=== PATIENT | female | born 1990 | race Caucasian/White ===

== ENCOUNTER 2018-02-12 07:53 | Outpatient (CLI) | payer OTHER ==
--- NOTE | 2018-02-12 08:35 | ULT ---
RIGHT BREAST ULTRASOUND: Indication: Ultrasound performed to evaluate a painful palpable lump 7 o'clock right breast. There is also a second palpable nodule noted by the physician at 1 o'clock. FINDINGS: At 7 o'clock at the site of palpable painful abnormality is a large complex septated cyst with total measurements recorded at 3.2 x 2.0 cm. At 1 o'clock there are two adjacent cysts measuring approximately 1.0 cm each. Patient requests aspiration of the large painful septated cyst at 7 o'clock and this will be schedule d. IMPRESSION: Complex septated cyst at 7 o'clock corresponds to the palpable painful lump noted by the patient. Two adjacent cysts at 1 o'clock are also noted corresponding to palpable abnormality. BIRADS category 2 - benign findings. Patient requests aspiration of the large complex cyst at 7 o'ilsa ck due to pain. POS: OFF
== END 2018-02-12 07:54 | disposition home or self-care (01) ==
LOC: BICULT 07:53
PROVIDERS: ATTEND Family Medicine
DX: N63.20 Unspecified lump in the left breast, unspecified quadrant (principal); N60.01 Solitary cyst of right breast

== ENCOUNTER 2018-03-06 08:45 | Outpatient (CLI) | payer OTHER ==
--- NOTE | 2018-03-06 10:24 | ULT ---
HEPATIC SONOGRAM WITH DUPLEX EVALUATION: History: Hepatitis C. FINDINGS: The gallbladder has a normal appearance without evidence of stones. Common duct is 0.4 cm. Liver is u nremarkable without focal mass or intrahepatic biliary dilatation. No free fluid. Spleen is 9.2 cm length. Good color and spectral doppler flow within the hepatic and splenic arteries. Portal venous flow is t owards the liver. Hepatic venous flow is toward the IVC. IMPRESSION: No significant abnormalities were demonstrated. No evidence of portal venous hypertension. POS: TPC
--- NOTE | 2018-03-06 11:43 | ULT ---
ULTRASOUND GUIDED CYST ASPIRATION: Date: 03-06-18 Provided Clinical History: Right breast cyst. FINDINGS: Limited sonographic interrogation of the right breast was performed in the 7 and 1 o'clock positions. There is re-demonstration of a septated cyst at the 7 o'clock position of the right breast measuring about 3 cm. The previously described cysts at the 1 o'clock location are no longer apparent. Informe d consent was obtained from the patient. The area overlying the right breast 7 o'clock cyst was prepp ed and draped in the usual sterile manner and the soft tissues infiltrated with 1% buffered Lidocaine . Utilizing continuous sonographic guidance, an 18 gauge spinal needle was advanced into the large an d smaller components of the right breast cyst and aspirated completely. Non sanguinous fluid was yiel ded. No immediate complications. IMPRESSION: Technically successful ultrasound guided right breast cyst aspiration. POS: OFF
== END 2018-03-06 08:46 | disposition home or self-care (01) ==
LOC: BICULT 08:45
PROVIDERS: ATTEND Physician Assistant Medical
DX: B18.2 Chronic viral hepatitis C (principal); N63.13 Unspecified lump in the right breast, lower outer quadrant
CPT/HCPCS: 76705; 76942

== ENCOUNTER → 2018-03-06 | Day surgery (SDC) | payer OTHER | LOC: BICULT 08:50 | PROVIDERS: ATTEND Family Medicine | PROC: 0H9T3ZZ Drainage of Right Breast, Percutaneous Approach (ICD-10-PCS; principal; 2018-03-06) | DX: N60.01 Solitary cyst of right breast (principal) ==